=== PATIENT | male | born 1965 | race Caucasian/White ===

== ENCOUNTER → 2016-08-26 | Outpatient (CLI) | payer BC ==
[~2016-08-26] MED LIST: SIMV40TA2 PO
== END | disposition home or self-care (01) ==
LOC: C.RDSM 13:50
PROVIDERS: ATTEND Physical Medicine & Rehabilitation Sports Medicine
DX: M25.532 Pain in left wrist (principal)

== ENCOUNTER → 2016-08-28 | Outpatient (CLI) | payer BC ==
[2016-08-28 09:33] LABS: BASO % 0.2 %; BASO ABS # 0.01 K/uL (0-0.2); COMPLETE YES; EOS % 3.2 %; HEMATOCRIT 45.9 % (42-52); IG% 0.2 %; LYMPH % 40.8 %; MEAN CELL VOLUME 88.3 fL (80-100); MEAN CORPUSCULAR HEMOGLOBIN 29.8 pg (25-34); MEAN CORPUSCULAR HGB CONC 33.8 g/dl (32-36); MONO % 9.9 %; NEUT % 45.7 %; PLATELET COUNT 141 K/uL (130-400); WHITE BLOOD COUNT 4.66 K/uL (4.8-10.8)
[2016-08-28 09:49] LABS: CHOLESTEROL/HDL RATIO 3.6
--- NOTE | 2016-09-04 14:02 | CODING QUERY MEDICAL NECESSITY ---
CQSUPPORTING DIAGNOSIS NEEDED A supporting diagnosis is required for the test/procedure performed on this patient in order for us to be reimbursed by the patient's insurance. Please provide a supporting diagnosis for the following test/procedure listed below next to the test name along with your signature. *If there is no additional diagnosis for this patient that would support the following test/procedure please document that below next to the test/procedure. Test(s)/Procedure(s) that require a supporting diagnosis: DOS 08/28/16 VITAMIN D TEST Provider Signature: Date: Thank you Melissa Braxton Health Information Management Once completed, please kindly fax back to [phone] For questions please call [phone]
== END | disposition home or self-care (01) ==
LOC: C.LAB1850 07:15
PROVIDERS: ATTEND Internal Medicine
DX: Z00.00 Encounter for general adult medical examination without abnormal findings (principal); E78.5 Hyperlipidemia, unspecified; I49.3 Ventricular premature depolarization; R73.01 Impaired fasting glucose; M19.90 Unspecified osteoarthritis, unspecified site

== ENCOUNTER → 2017-04-23 | Outpatient (CLI) | payer OTHER ==
[~2017-04-23] MED LIST changes: +GADAVIST IV PRN
--- NOTE | 2017-04-23 11:22 | DIAGNOSTIC IMAGING REPORT ---
FLUOROSCOPICALLY GUIDED LEFT WRIST GADOLINIUM ARTHROGRAM PRE-MRI CLINICAL HISTORY: Left wrist pain COMPARISON STUDY: Conventional radiographic study dated 08/24/2016 FLUOROSCOPY TIME: 20 seconds. NUMBER OF FLUOROSCOPIC IMAGES: 1 FINDINGS: A timeout was performed. The risks of the procedure were explained the patient informed consent was obtained. The patient was prepped and draped in sterile fashion. The skin over the dorsum of the wrist was anesthetized 1% lidocaine. A 22-gauge needle was introduced into the radius scaphoid joint. Under fluoroscopic guidance a mixture of Optiray 300 and gadolinium was instilled. A single fluoroscopic spot image documents intra-articular location of the contrast. There were no complications. The patient was sent to the MRI suite for further evaluation. IMPRESSION: Successful fluoroscopically guided left wrist arthrogram pre-MRI Electronically signed by: Tod Rao M.D. 04/23/2017 11:20 AM Dictated Date/Time: 04/23/2017 11:18 AM
--- NOTE | 2017-04-23 11:33 | DIAGNOSTIC IMAGING REPORT ---
MRI OF THE LEFT WRIST POST ARTHROGRAM CLINICAL HISTORY: Persistent left wrist pain COMPARISON STUDY: Conventional radiographic study dated August 26, 2016 FINDINGS: Imaging was performed in the sagittal, coronal, and axial planes. There are no areas of marrow edema to indicate occult fracture or bone bruise. There is an extensive complex tear of the triangle fibrocartilage with disruption of the ulnar styloid attachment. There are no findings to indicate a tendinopathy. There is a suspected 3 mm dorsal loose body. IMPRESSION: 1. No evidence of occult fracture or bone bruise 2. Extensive complex tear of the triangular fibrocartilage 3. Probable 3 mm dorsal loose body Electronically signed by: Tod Rao M.D. 04/23/2017 11:32 AM Dictated Date/Time: 04/23/2017 11:27 AM
== END | disposition home or self-care (01) ==
LOC: C.MRIBC 09:55
PROVIDERS: ATTEND Physical Medicine & Rehabilitation Sports Medicine
DX: S63.592A Other specified sprain of left wrist, initial encounter (principal); X58.XXXA Exposure to other specified factors, initial encounter

== ENCOUNTER 2024-08-26 05:18 | Inpatient (IN) ==
--- NOTE | 2024-07-20 12:32 | PAT Medication Instructions ---
Medication Instructions Date of Service July 20, 2024 Home Medications Medication Instructions Recorded simvastatin 40 mg tablet 40 mg PO PM #90 tabs 09/29/23 tretinoin 0.05 % topical cream 1 applic topical Q OTHER DAY #45 06/01/24 grams triamcinolone acetonide 0.1 % 1 applic topical BID PRN rash #15 06/01/24 topical cream grams multivitamin 1 tab PO 2XWK PRN Other simvastatin 40 mg tablet 40 mg PO PM tretinoin 0.05 % topical cream 1 applic topical Q OTHER DAY triamcinolone acetonide 0.1 % topical cream 1 applic topical BID PRN rash STOP taking 24 hours before surgery tretinoin 0.05 % topical cream 1 applic topical Q OTHER DAY triamcinolone acetonide 0.1 % topical cream 1 applic topical BID PRN rash DO NOT take the morning of surgery multivitamin 1 tab PO 2XWK PRN Other Take evening before surgery simvastatin 40 mg tablet 40 mg PO PM MORNING OF SURGERY: NOTHING TO EAT OR DRINK AFTER MIDNIGHT Other Notes If you have any questions please call us at [phone] or [phone] or [phone] or [phone]
--- NOTE | 2024-07-28 11:09 | Anesthesiology Consultation ---
Date of Service July 28, 2024 Assessment & Plan (1) Encounter for pre-operative examination: Chart Review Chart Review: Acceptable Risk for Surgery (pending surgeon ordered PCP clearance ) and Patient seen in Pre Admission Testing - Awaiting PCP clearance 08/23/24 (Dr Pierre) Pt currently scheduled as 23 hours observation. If surgeon decides to change patient to Same Day Joint, patient would be acceptable risk for MELINA, pending patient is motivated, has good support and surgeon's office completes [facility] Program preop requirements. Per PAT appt on 07/28/24, no recent illness/disease exposures, illness related symptoms, or recent illness/disease positive tests. Will leave to surgeon's discretion if preop Covid testing needed Teaching & Discussion Pre-Anesthesia Teaching/Discussion Notes: Instructed NPO after midnight before surgery,except medications with 15 cc of water. Medication instructions provided according to the PAT guidelines. History Surgery Operation Date: 08/26/24 08:50 Proposed Procedures p Left Total Hip Arthroplasty - Huber Stokes MD Height/Weight Height: 5 ft 11.5 in Weight: 96.8 kg Allergies Allergy/AdvReac Type Severity Reaction Status Date / Time aluminum Allergy Intermediate "Metals" - Verified 07/21/24 10:24 skin irritation Additional Notes: Surgeon's office made aware- surgeon aware of "metals" allergy Medications Home Medications Medication Instructions Recorded Confirmed Last Taken multivitamin 1 tab PO 2XWK PRN Other 09/15/23 07/20/24 Unknown simvastatin 40 mg tablet 40 mg PO PM #90 tabs 09/29/23 07/20/24 Unknown tretinoin 0.05 % topical cream 1 applic topical Q OTHER DAY #45 06/01/24 07/20/24 Unknown grams triamcinolone acetonide 0.1 % 1 applic topical BID PRN rash #15 06/01/24 07/20/24 Unknown topical cream grams Past Medical History Medical History Bradycardia HR 40s-50s no dizziness, lightheadedness, syncope History of COVID-19 09/2021 (home test): Asymptomatic - /daughter positive Hyperlipidemia Suspected sleep apnea No formal testing thinks he may have this per patient Exercise / Class Metabolic Activity II 4-5 Yardwork/Stairs/Walk up hill (one flight of stairs- no chest pain or SOB ) Past Family History Family History Grandmother (Paternal) Family history of diabetes mellitus Grandfather (Maternal) Family hx of colon cancer Other No family history of adverse response to anesthesia Past Surgical History Surgical History History of Achilles tendon repair left History of arthroscopy rt knee History of arthroscopy of shoulder not sure which shoulder History of colonoscopy History of elbow surgery R/L History of facial surgery repair of broken orbital bone History of repair of anterior cruciate ligament of right knee History of repair of rotator cuff bilat History of right inguinal hernia repair History of surgery right groin and left groin---1 surgery on each History of tonsillectomy History of wisdom tooth extraction Hx of arthroscopy of right knee x5 Hx of vasectomy Status post correction of deviated nasal septum Past Anesthesia History No Hx of Anesthesia Complications and No Family Hx of Anesthesia Complications History of PONV No Hx of PONV and No Hx of Motion Sickness Social History Smoking Status: Never smoker Do You Dip or Chew Tobacco: No Hx Alcohol Use: Yes Alcohol type: beer and wine alcohol intake frequency: a few times a week Hx Substance Use: No substance use type: does not use Review of Systems Patient denies chest pain, shortness of breath, dyspnea on exertion, reflux, cough, wheezing, palpitations. No hx of seizures, stroke, SC. No hx of blood clots or blood transfusions Physical Exam Vital Signs VITALS BP 134/77 P 57 TEMP 97.8 SP02 98% RESP 16 Constitutional no acute distress ENMT Mouth: no TMJ clicking Thyromental Distance: > or= 3.5 Finger Breadths (3.5) Mallampati Class: I Mouth / Teeth: 2 1. Missing 2. Missing Partial upper denture Neck neck extension not limited Respiratory normal respiratory effort; no respiratory distress Auscultation: lungs clear to auscultation bilaterally; no wheezes Cardiovascular Rate/Rhythm: regular rate and regular rhythm Heart Sounds: no murmur Vessels: no carotid bruit Musculoskeletal Spine: + pain with cervical ROM (mildly uncomfortable ) Extremities: extremities normal to inspection Psychiatric Orientation: alert Lab Results Anesthesia Preop Results Results Anesthesia Widget: 2 WBC 5.25 K/ul (4.8-10.8) 07/28/24 Hgb 15.2 g/dl (14.0-18.0) 07/28/24 Hct 43.5 % (42.0-52.0) 07/28/24 Plt 143 K/uL (130-400) 07/28/24 Na 141 mmol/L (136-145) 07/28/24 K 4.1 mmol/L (3.5-5.1) 07/28/24 Cl 106 mmol/L (98-107) 07/28/24 CO2 29 mmol/L (21-32) 07/28/24 BUN 19 mg/dl (6-23) 07/28/24 Creat 1.09 mg/dl (0.6-1.4) 07/28/24 Glucose Level 100 mg/dl (70-99(Fasting)) H 07/28/24 PT 10.9 Seconds (9.0-12.0) 07/28/24 PTT 25 Seconds (21-31) 07/28/24 INR 1.0 (0.9-1.1) 07/28/24 Urine Color Yellow 07/28/24 Urine Appearance Clear (Clear) 07/28/24 Urine pH 6.5 (4.5-7.5) 07/28/24 Urine Specific [place] 1.022 (1.000-1.030) 07/28/24 Urine Protein Negative (Negative) 07/28/24 Urine Glucose (UA) Negative (Negative) 07/28/24 Urine Ketones Trace (Negative) H 07/28/24 Urine Blood Negative (Negative) 07/28/24 Urine Nitrite Negative (Negative) 07/28/24 Urine Bilirubin Negative (Negative) 07/28/24 Urine Urobilinogen Negative (Negative) 07/28/24 Urine Leukocyte Esterase Negative (Negative) 07/28/24 Blood Type A Negative 07/28/24 Antibody Screen NEGATIVE 07/28/24 Testing Electrocardiogram Date: 07/28/24 Findings: + SB @ (52bpm) Otherwise normal EKG per cardio
[2024-08-26] MEDS: LR 15ML/HR IV SCH (06:00)
[2024-08-26] MEDS: LR 60ML/HR IV SCH (06:06)
[2024-08-26] MEDS: FAMOTIDINE 20 MG TAB PO SCH (06:09)
[2024-08-26] MEDS: CeleBREX 200 MG CAP PO SCH (06:09)
[2024-08-26] MEDS: traMADol HCL 50 MG TABLET PO SCH (06:09)
[2024-08-26] MEDS: dexAMETHasone**PF** 10 MG/ML VIAL IV SCH (06:09)
[2024-08-26] MEDS: ACETAMINOPHEN 500 MG TAB PO SCH ×2 (06:09→15:13)
[2024-08-26] MEDS: Scopolamine 1 MG TDSY TD SCH (06:11)
[2024-08-26] MEDS ORDERED: BUPIVACAINE 0.5 % 5 MG/1 ML PF 10ML VIAL ONE (06:31)
--- NOTE | 2024-08-26 06:31 | History & Physical Bridge Note ---
Date of Service August 26, 2024 History & Physical Bridge Note I have examined the patient, reviewed the History & Physical and in the interval since the performance of the History & Physical I have noted the following changes of clinical significance: no changes noted
[2024-08-26] MEDS ORDERED: LIDOCAINE 2% 2 ML VIAL/AMP(20MG/ML) INFIL ONE (06:44)
[2024-08-26] MEDS ORDERED: PROPOFOL IV EMULSION 10 MG/ML 20 ML VIAL IV ONE ×2 (06:44→08:26)
[2024-08-26] MEDS ORDERED: fentaNYL citrate PF 100 MCG/2 ML VIAL ONE (06:45)
[2024-08-26] MEDS ORDERED: MIDAZOLAM HCL 1 MG/ML 2ML VIAL ONE (06:45)
[2024-08-26] MEDS: TRANEXAMIC ACID 1,000 MG **IV Pre-op IV SCH (06:48)
[2024-08-26] MEDS: ceFAZolin 2000MG 2,000 MG/15 ML SYR IV SCH ×2 (07:00→16:00)
[2024-08-26] MEDS ORDERED: KETAMINE HCL 10MG/ML SYR ONE (07:15)
[2024-08-26] MEDS ORDERED: PROMETHAZINE HCL 6.25 MG in SODIUM CHLORIDE 0.9% 50 ML IV PRN (07:34)
[2024-08-26] MEDS ORDERED: ATROPINE SULFATE 0.1 MG/ML 10ML SYR IV PRN (07:34)
[2024-08-26] MEDS ORDERED: HYDROmorphone INJ 2 MG/ML SYR/VIAL IV PRN (07:34)
[2024-08-26] MEDS ORDERED: ePHEDrine sulfate 50 MG/ML AMP IV PRN (07:34)
[2024-08-26] MEDS: ROPIV 0.5% 246mg, Ketorolac 30mg, EPINEPHrine 0.5mg in NSS INFIL SCH (07:34)
[2024-08-26] MEDS ORDERED: DROPERIDOL 5 MG/2 ML VIAL IV PRN (07:34)
[2024-08-26] MEDS: ORTHO JOINT ANESTHETIC ONE (07:35)
[2024-08-26] MEDS: TRANEXAMIC ACID 1,000 MG **IV Intra-op IV SCH (08:15)
[2024-08-26] MEDS ORDERED: ePHEDrine sulfate 50 MG/5 ML SYR ONE (08:27)
--- NOTE | 2024-08-26 08:44 | Operative Report ---
Post Operative Report Pre & Post Diagnosis Operation Date: 08/26/24 07:00 Pre-Op Diagnosis: Left Hip Osteoarthritis Post-Op Diagnosis: Left Hip Osteoarthritis I identified the patient and participated in the time-out.: Yes Procedure Operation Date: 08/26/24 07:00 Actual Procedures p Left Total Hip Arthroplasty(Left) - Huber Stokes MD Surgeon Huber Stokes MD [employer] Converter HANNAH Wayne PA-C. No resident or fellow was available to assist. Estimated Blood Loss 100 Findings Consistent with Post-Op Diagnosis Specimens Left femoral head Anesthesia Type Spinal MAC Complications none Disposition Disposition: Recovery Room Indications 58-year-old male, with left hip osteoarthritis refractory to conservative management. X-rays demonstrate joint space narrowing and marginal osteophyte formation. I had a long discussion with him about his diagnosis and treatment options. I reviewed the risks and benefits of surgery, alternatives to surgery, and expected outcomes. After reviewing all of his options he elected to proceed with surgery. All questions were answered. Informed consent was signed. Description of Procedure Patient was identified in the preoperative holding area where the surgical site, left hip, was marked. A spinal anesthetic was placed, then the patient was brought back to the main operating room, placed in the operating table and moved into the lateral decubitus position. Axillary roll was placed. All bony prominences were padded. Perioperative antibiotics and tranexamic acid 1 gram IV were administered. The operative extremity was prepped and draped in the normal sterile fashion. Prior to incision a multidisciplinary timeout was called. All in the room were in agreement. We began by making an incision for a posterior approach to the hip. We dissected down through subcutaneous tissues to the level of the fascia. The fascia was incised in line with the incision. Charnley bow was placed. Fatty tissue was reflected posteriorly off the back of the greater trochanter to expose the piriformis and short external rotators of the hip. Quadratus femoris was taken off the femur subperiosteally. The piriformis and short external rotators were dissected off the posterior aspect of the hip. A box cut was made in the capsule. Inferior hip capsule was released off the femur. The femoral head was dislocated. The femoral neck cut was made at our preoperative template. The acetabulum was then exposed. The labrum was sharply excised. Contents of the cotyloid fossa were removed with electrocautery. We then began reaming at a size 8 mm less than our preoperative template. We reamed up by [address] the way up to a size 56 mm cup. This gave us good bleeding cancellus bone circumferentially. The acetabulum was then irrigated out and dried. The real [place] Gription cup was then impacted down into position with 45 degrees of lateral opening and 25 degrees of anteversion. A single cancellous bone screw was placed up into the ilium. Excellent fixation was obtained. A trial liner for a 36 mm femoral head was then placed. Next we turned our attention to the femur. The lateral neck was removed with a box osteotome. Intramedullary guide was used to establish the intramedullary canal. We then broached all the way up to a size 4. We began trialing with a high offset neck and a +8.5 head. Hip was reduced. Shuck test showed him to be a little loose. Therefore I switched out his liner for a +4 liner. Shuck test was repeated and now was appropriate. Leg lengths were symmetric. The hip was stable in extension and external rotation, and stable in the sleeper position. At 90 degrees of hip flexion the hip could be internally rotated 70 degrees before levering out of the cup. I was very happy with the stability exam. Therefore the hip was dislocated and the femoral trial was removed. The acetabulum was re-exposed, and the trial liner was removed. Almond hole eliminator screw was placed. A +4 Altrx polyethylene liner for a 36 mm femoral head was then impacted into the shell. The locking mechanism was checked to ensure that it had engaged which it had. The femur was re-exposed. The femoral canal was irrigated and dried. The real Actis femoral stem was opened up. This was impacted down into position. The femoral head was opened up and gently impacted down onto the trunnion. The hip was atraumatically reduced. Another 1 gram of IV tranexamic acid was started prior to closure. The wound was irrigated out with sterile Betadine solution. The periarticular injection cocktail was then placed. The short external rotators, piriformis, and posterior capsule were repaired through drill holes in the greater trochanter using #2 Vicryl. The fascia was run with a looped #1 PDS. The subcutaneous layer was closed with #1 PDS. The dermal layer was closed with 2-0 Vicryl. Zip line was used for the skin followed by a Silverlon dressing. A compressive dressing was then placed. The patient was then rolled supine. Leg lengths were rechecked and were symmetric. An abduction pillow was placed. Sedation was lifted and the patient was transferred to the recovery room in stable condition. Summary of implants: Depuy [place] Gription Acetabular Shell Sector Cup, 56 mm outer diameter [place] Cancellous bone screw, 6.5 x 35 mm Almond hole eliminator [place] Altrx Polyethylene Acetabular Liner, +4, with a 36 mm inner diameter DePuy Actis collared cementless Femoral stem, 12/14 taper, size 4 high offset 36 mm ceramic femoral head with +8.5 offset Postoperative course: Patient will be admitted overnight from the recovery room. Patient will be weightbearing as tolerated with posterior hip precautions. Aspirin for DVT prophylaxis I attest to the content of the Intraoperative Record and any orders documented therein. Any exceptions are noted below.
--- NOTE | 2024-08-26 08:52 | Operative Report ---
Post Operative Report Pre & Post Diagnosis Operation Date: 08/26/24 07:00 Pre-Op Diagnosis: Left Hip Osteoarthritis Post-Op Diagnosis: Left Hip Osteoarthritis I identified the patient and participated in the time-out.: Yes Procedure Operation Date: 08/26/24 07:00 Actual Procedures p Left Total Hip Arthroplasty(Left) - Huber Stokes MD Surgeon Huber Stokes MD [employer] Consultant HANNAH Wayne PA-C. No resident or fellow was available to assist. Estimated Blood Loss 100 Findings Consistent with Post-Op Diagnosis Specimens femoral head Description of Procedure I was present during the entire case assisting with positioning, prepping, draping, wound retraction, wound closure, dressing and abduction pillow placement. No fellow present. Please see Dr. Stokes procedure note for specifics of the case. I attest to the content of the Intraoperative Record and any orders documented therein. Any exceptions are noted below.
[2024-08-26] MEDS ORDERED: ONDANSETRON INJ 2 MG/ML 2 ML VIAL IV PRN (08:55)
[2024-08-26] MEDS ORDERED: NALOXONE HCL 0.4 MG/1 ML VIAL/CARP IV PRN (08:55)
[2024-08-26] MEDS ORDERED: MAGNESIUM HYDROXIDE SUSP 30 ML UDC PO PRN (08:55)
[2024-08-26] MEDS ORDERED: TAMSULOSIN HCL 0.4 MG CAP PO PRN (08:55)
[2024-08-26] MEDS ORDERED: METOCLOPRAMIDE HCL INJ 5 MG/ML 2 ML VIAL IV PRN (08:55)
[2024-08-26] MEDS ORDERED: ALUMINUM/MAGNESIUM SUSP 30 ML UDC PO PRN (08:55)
[2024-08-26] MEDS ORDERED: bisacodyL 10 MG SUPP PR PRN (08:55)
--- NOTE | 2024-08-26 09:23 | XRay Report ---
XR pelvis 1-2V routine CLINICAL HISTORY: In PACU - Post Surgical COMPARISON: 08/13/2024 FINDINGS: Interval left hip prosthesis shows no hardware complication. There is expected soft tissue gas. IMPRESSION: Unremarkable postoperative exam. ACT 112: Negative or not required by law. Electronically signed by: Wilver Weinstein M.D. 08/26/2024 9:22 AM
[2024-08-26] MEDS: ASPIRIN 81 MG ECTAB PO SCH (10:23)
[2024-08-26] MEDS: DOCUSATE SODIUM 100 MG CAP PO SCH (10:23)
[2024-08-26] MEDS: KETOROLAC TROMETHAMINE 15 MG/ML VIAL IV SCH (10:23)
[2024-08-26] MEDS: MULTIVITAMIN TAB PO SCH ×2 (10:24→15:13)
[2024-08-26] MEDS: SODIUM CHLORIDE 0.9% 1,000 ML IV SCH (10:25)
--- NOTE | 2024-08-26 15:11 | Anesthesiology Progress Note ---
Date of Service August 26, 2024 Anesthesia Post Procedure Vital Signs Vital Signs: Temp Pulse Pulse Resp BP Pulse Ox O2 Del Method 08/26/24 14:58 36.4 C L 51 L 18 124/71 94 Room Air 08/26/24 12:36 36.4 C L 51 L 18 135/83 96 Room Air 08/26/24 11:40 36.5 C 68 18 120/70 95 Room Air 08/26/24 10:40 36.5 C 48 L 18 124/70 94 Room Air 08/26/24 10:10 36.4 C L 51 L 16 132/71 94 Room Air 08/26/24 10:00 51 L 13 110/63 94 Room Air 08/26/24 09:50 58 L 19 106/57 L 95 Room Air 08/26/24 09:40 36.4 C L 48 L 13 109/62 95 Room Air 08/26/24 09:30 46 L 18 98/56 L 98 Nasal Cannula 08/26/24 09:20 50 L 12 109/60 98 Nasal Cannula 08/26/24 09:10 48 L 13 102/55 L 97 Nasal Cannula 08/26/24 09:00 51 L 13 92/57 L 97 Nasal Cannula 08/26/24 08:50 36.5 C 54 L 15 97/50 L 93 Room Air 08/26/24 05:40 36.6 C 54 L 20 147/88 H 95 Room Air O2 Flow Rate 08/26/24 14:58 08/26/24 12:36 08/26/24 11:40 08/26/24 10:40 08/26/24 10:10 08/26/24 10:00 08/26/24 09:50 08/26/24 09:40 08/26/24 09:30 1 08/26/24 09:20 1 08/26/24 09:10 3 08/26/24 09:00 3 08/26/24 08:50 08/26/24 05:40 Pain Intensity Left Hip: Pain Intensity: 0 Transfer of Care Handoff Completed per policy Notes Mental Status: alert / awake / arousable and participated in evaluation Nausea / Vomiting: adequately controlled Pain: adequately controlled Airway Patency, RR, SpO2: stable & adequate BP & HR: stable & adequate Hydration State: stable & adequate Anesthetic Complications: no major complications apparent and Pt Satisfied with anesthetic care
[2024-08-26] MEDS: Scopolamine CHECK PATCH PLACEMENT SCH (16:00)
[2024-08-26] MEDS: SENNA 8.6 MG TAB PO SCH (20:27)
[2024-08-26] MEDS: SIMVASTATIN 40 MG TAB PO SCH (20:28)
[2024-08-27] MEDS: diphenhydrAMINE 50 MG/ML VIAL IV PRN (04:03)
[2024-08-27 06:42] LABS: Basophils # (auto) 0.01 K/uL (0.00-0.20); Basophils % (auto) 0.1 %; Eosinophils # (auto) 0.02 K/uL (0.00-0.50); Eosinophils % (auto) 0.2 %; Hematocrit (blood only) 36.6 % (42.0-52.0); Immature Granulocytes # (auto) 0.05 K/uL (0.01-0.20); Immature Granulocytes % (auto) 0.5 %; Lymphocytes # (auto) 1.66 K/uL (1.20-3.40); Lymphocytes % (auto) 14.9 %; Mean Corpuscular Hemoglobin 30.4 pg (25.0-34.0); Mean Corpuscular Hgb Conc 35.5 g/dL (32.0-36.0); Mean Corpuscular Volume 85.7 fL (80.0-100.0); Monocytes # (auto) 1.29 K/uL (0.11-0.59); Monocytes % (auto) 11.6 %; Neutrophils # (auto) 8.08 K/uL (1.40-6.50); Neutrophils % (auto) 72.7 %; Platelet Count 129 K/uL (130-400); RDW Coefficient of Variation 12.4 % (11.5-14.5); RDW Standard Deviation 38.4 fL (36.4-46.3); Red Blood Count 4.27 M/uL (4.70-6.10); White Blood Count 11.11 K/ul (4.8-10.8)
[2024-08-27 07:08] LABS: Creatinine Clr Calc Pharmacy 97.7 ml/min
[2024-08-27] MEDS: dexAMETHasone 10 MG in SYRINGE 0 ML IV SCH (08:00)
[2024-08-27] MEDS: CeleBREX 200 MG CAP PO SCH (08:07)
--- NOTE | 2024-08-27 09:39 | Orthopedic Progress Note ---
Date of Service August 27, 2024 Assessment & Plan (1) S/P total left hip arthroplasty: Plan: Total hip precautions reviewed Weightbearing as tolerated with walker assistance PT/OT DVT prophylaxis with aspirin and SCOUT stockings Keep Silverlon dressing in place Ice to the throughout Abduction pillow use x 6 weeks Pain control with p.o. medication Plan is to discharge home later today with in-home physical therapy for the first 2 weeks Follow-up at [facility] orthopedics as previously scheduled With questions contact our clinic at [phone] Admission and Anticipated Discharge Date Admission Date: August 26, 2024 Subjective This 58-year-old male is day 1 status post left total hip arthroplasty. Patient states he is doing fairly well. He states that his pain is effectively controlled with p.o. pain medication he is receiving. States that he has completed PT and OT this morning. He is hoping to be discharged home later this morning. Currently he denies chest pain, shortness of breath, fever, chills, sweats, nausea, vomiting, diarrhea or difficulty voiding. He has no complaint of numbness or tingling in his left lower extremity. Review of Systems Review of Systems: All systems reviewed & are unremarkable except as noted in Subjective Physical Exam Physical Exam: Left hip: Outer dressing was removed. Silverlon is clean dry and intact left in place. Patient is able to perform an active straight leg raise test. He is able to actively dorsi and plantarflex his foot. His quad strength is 4 out of 5. Patient tolerates passive hip flexion to 80 degrees and only feels a slight pulling sensation with light passive internal rotation. He has no discomfort with external rotation. Logroll test negative. He is neurovascularly intact in the left lower extremity and able to easily transition from a seated to standing position with the assistance of his walker. Results & Data Vital Signs (Past 12 Hours) Vital Signs Temp Pulse Pulse Resp BP Pulse Ox O2 Del Method 08/27/24 08:08 36.8 C 56 L 18 132/65 96 Room Air 08/27/24 03:00 37.0 C 54 L 16 113/65 94 Room Air 08/26/24 23:00 36.8 C 54 L 16 116/65 95 Room Air Diagnostic Findings Laboratory Results WBC 11.11 K/ul (4.8-10.8) H 08/27/24 06:17 RBC 4.27 M/uL (4.70-6.10) L 08/27/24 06:17 Hgb 13.0 g/dl (14.0-18.0) L 08/27/24 06:17 Hct 36.6 % (42.0-52.0) L 08/27/24 06:17 MCV 85.7 fL (80.0-100.0) 08/27/24 06:17 MCH 30.4 pg (25.0-34.0) 08/27/24 06:17 MCHC 35.5 g/dL (32.0-36.0) 08/27/24 06:17 RDW Std Deviation 38.4 fL (36.4-46.3) 08/27/24 06:17 RDW Coeff of Kelsey 12.4 % (11.5-14.5) 08/27/24 06:17 Plt Count 129 K/uL (130-400) L 08/27/24 06:17 MPV 10.0 fL (9.4-12.4) 08/27/24 06:17 Immature Gran % (Auto) 0.5 % 08/27/24 06:17 Neut % (Auto) 72.7 % 08/27/24 06:17 Lymph % (Auto) 14.9 % 08/27/24 06:17 [place] % (Auto) 11.6 % 08/27/24 06:17 Eos % (Auto) 0.2 % 08/27/24 06:17 Baso % (Auto) 0.1 % 08/27/24 06:17 Neut # (Auto) 8.08 K/uL (1.40-6.50) H 08/27/24 06:17 Lymph # (Auto) 1.66 K/uL (1.20-3.40) 08/27/24 06:17 [place] # (Auto) 1.29 K/uL (0.11-0.59) H 08/27/24 06:17 Eos # (Auto) 0.02 K/uL (0.00-0.50) 08/27/24 06:17 Baso # (Auto) 0.01 K/uL (0.00-0.20) 08/27/24 06:17 Immature Gran # (Auto) 0.05 K/uL (0.01-0.20) 08/27/24 06:17 Sodium 140 mmol/L (136-145) 08/27/24 06:17 Potassium 4.0 mmol/L (3.5-5.1) 08/27/24 06:17 Chloride 108 mmol/L (98-107) H 08/27/24 06:17 Carbon Dioxide 25 mmol/L (21-32) 08/27/24 06:17 Anion Gap 7 (3-11) 08/27/24 06:17 BUN 17 mg/dl (6-23) 08/27/24 06:17 Creatinine 1.00 mg/dl (0.6-1.4) 08/27/24 06:17 Est Cr Clr Drug Dosing 97.7 ml/min 08/27/24 06:17 eGFR 87.78 08/27/24 06:17 BUN/Creatinine Ratio 17.0 (10-20) 08/27/24 06:17 Glucose 128 mg/dl (70-99(Fasting)) H 08/27/24 06:17 Calcium 9.0 mg/dl (8.6-10.3) 08/27/24 06:17 Impressions Pelvis X-Ray 08/26/24 08:55 XR pelvis 1-2V routine CLINICAL HISTORY: In PACU - Post Surgical COMPARISON: 08/13/2024 FINDINGS: Interval left hip prosthesis shows no hardware complication. There is expected soft tissue gas. IMPRESSION: Unremarkable postoperative exam. ACT 112: Negative or not required by law. Electronically signed by: Wilver Weinstein M.D. 08/26/2024 9:22 AM
--- NOTE | 2024-08-27 09:46 | Discharge Summary ---
Date of Service August 27, 2024 Admission HPI Per Admitting Provider History of Present Illness Omero Patel is a 58-year-old male who presents to the clinic today for history and physical examination. He is scheduled for a left total hip arthroplasty with Dr. Stokes at [facility]. Patient has had left hip pain for about the last year. He has had several injections in the past, most recently about 4 months ago. His pain has persisted and is affecting his ability to perform activities that he wants to do, and is keeping him awake at night. He recently met with Dr. Stokes in June and decision was made to proceed with surgery. Patient has a few questions today about surgery. He does plan to travel to [place] about a month after surgery. Regarding past medical history, patient is healthy. He only takes a statin for daily medication. No significant cardiac history. He denies any acute health concerns. Does report a metal allergy, has been unable to wear any sort of jewelry in the past, develops a rash. He denies any history of blood clots, MRSA infection, or bleeding or clotting disorders. No chest pain, shortness of breath, abdominal pain, nausea, vomiting, urinary symptoms, dental infections, recent dental work. Has had many other surgeries in the past but no history of joint replacements. Admission Exam Per Admitting Provider CONSTITUTIONAL: well developed, well nourished. resting comfortably in no distress EARS: tm's without erythema or bulging. canals without erythema or edema. EYES: PERRL. conjunctiva normal MOUTH: oropharynx clear. dentition in good repair. no evidence of dental infection CARDIOVASCULAR: regular rate and rhythm. no murmurs, rubs, or gallops. Palpable DP and PT pulses RESPIRATORY: no tachypnea. lungs clear to auscultation bilaterally ABDOMEN: normal bowel sounds MUSCULOSKELETAL: Focusing on the patient's LEFT lower extremity: Antalgic gait Mild Varus alignment of the knee ROM: Hip flexion 90 / Abduction limited to 15 / External rotation 30 / Internal rotation 5 + Log roll + Scour test Equivocal Impingement test + CLAUDINE test + Stinchfield test - Mateusz's test NEUROLOGIC: Sensation intact to light touch L3 to S1 dermatomes Principal Diagnosis s/p left total hip arthroplasty Discharge Exam Left hip: Outer dressing was removed. Silverlon is clean dry and intact left in place. Patient is able to perform an active straight leg raise test. He is able to actively dorsi and plantarflex his foot. His quad strength is 4 out of 5. Patient tolerates passive hip flexion to 80 degrees and only feels a slight pulling sensation with light passive internal rotation. He has no discomfort with external rotation. Logroll test negative. He is neurovascularly intact in the left lower extremity and able to easily transition from a seated to standing position with the assistance of his walker. Discharge Data Allergies Allergy/AdvReac Type Severity Reaction Status Date / Time aluminum Allergy Intermediate "Metals" - Verified 08/26/24 05:34 skin irritation Procedures Performed Operation Date: 08/26/24 07:00 Actual Procedures p Left Total Hip Arthroplasty(Left) - Huber Stokes MD Hospital Course (1) S/P total left hip arthroplasty: Patient had an uneventful overnight stay following left total hip arthroplasty. He is very pleased with the results of the surgery. He is hoping to discharge home from the hospital soon as possible. He is already scheduled for 2-week follow-up in our office. Total hip precautions reviewed Weightbearing as tolerated with walker assistance PT/OT DVT prophylaxis with aspirin and SCOUT stockings Keep Silverlon dressing in place Ice to the throughout Abduction pillow use x 6 weeks Pain control with p.o. medication Plan is to discharge home later today with in-home physical therapy for the first 2 weeks Follow-up at [facility] orth[facility] as previously scheduled With questions contact our clinic at [phone] Total Time Total Time Spent Total Time Spent (In Minutes): 20 mins Discharge Plan Discharge Items Patient Disposition: Home - Home Health Services Reason For Visit: Left Hip Osteoarthritis Discharge Diagnosis: s/p Left total hip arthroplasty Activity: As commented below Lifting: None Bathing: Keep incision dry Bathing Comment: may shower tomorrow Sexual Activity: Wait until after follow-up appointment Exercise/Sports: Wait until after follow-up appointment Driving/Machine Use: No driving until cleared by credit operations specialist Weightbearing: Left weightbearing Weightbearing Comment: as tolerated with walker assistance Non-emergency contact: Surgeon Call non-emergency contact if: you have any medication questions, your pain is not controlled, your temperature is above 101.5, your wound has increased drainage and your wound pain has increased Follow-up/Referrals: Pro,Carlos Alberto James MD [Primary Care Provider] - Diet: Regular Addtl Attending Provider Instructions: Post-operative Instructions Dear Patient and Family/Friends, Before you are discharged from the hospital, it is important to know what to expect when you get home after surgery. To that end, we have created this sheet of discharge instructions which covers many commonly asked questions. Make sure you go through this sheet in its entirety with your nurse before you are discharged. Please note that we will go over the specifics of your surgery and recovery when you return for your first post-operative visit. Sincerely, Dr. Stokes Medications 1. Oxycodone 5 mg: Take 1 to 2 tablets every 4-6 hours as needed for postoperative pain control. A prescription for this medication will be sent to your pharmacy 2. Diclofenac sodium 75 mg: Take 1 tablet twice daily for the first 2 days postoperatively for relief of pain and inflammation. This will also be sent to your pharmacy with 1 refill. 3. Aspirin 81 mg: Take 1 tablet twice daily for the first 30 days postoperatively for blood clot prevention. Please purchase the medication. 4. Extra strength Tylenol 500 mg: Take 2 tablets every 6-8 hours as needed for additional supplemental pain control. Please purchase this medication. Pain Expect to be in a fair amount of pain after surgery. Remember, our goal is not to eliminate your pain, but to make it tolerable. It is a good idea to stay ahe ad of your pain by taking the medications you were prescribed once you get home. Typically, the pain starts improving 3-7 days after surgery. You should start weaning off the narcotic pain medication (oxycodone, hydrocodone, hydromorphone, morphine) as soon as your pain improves. Please call our office if your pain is not adequately controlled. Ice Ice your operative site at least 5 times a day for 15-30 minutes at a time. Make sure you have a thin cloth between the ice or cooling unit and your skin to prevent mishra bite. This is especially important if you received a nerve block. Continue icing your operative site for the first 5-7 days after surgery, then as needed. Diet/Nausea/Vomiting Start by drinking clear liquids and eating crackers. If you can tolerate this, then you may resume your normal diet. If you feel nauseated or vomit, take Zofran/ondansetron (if prescribed). Please call our office if you have intractable nausea or vomiting, or, if after hours, you may go to the Emergency Room for help. Constipation Constipation is a common side effect of narcotic pain medication. If you have not had a bowel movement within 2 days after surgery, we recommend purchasing an over the counter laxative such as Milk of Magnesia, Dulcolax, or Miralax from a local pharmacy, and taking it as instructed. Call our clinic if any questions. Nerve block The anesthesia team sometimes places a nerve block to help with post-operative pain control. This results in significant numbness and inability to move the extremity. The nerve block usually wears off in 8-12 hours, but sometimes can last up to 24 hours. Please call our office if you are still unable to move your extremity after 24 hours, unless you received a pain pump to take home. Nerve blocks typically wear off quickly, so start taking pain medication as soon as you start feeling soreness near your surgical site. Weight bearing and Range of Motion. Do not bear any weight through your operative extremity immediately after surgery. If you had upper extremity surgery, do not lift anything with that arm. If you are in a knee brace, keep it locked in place until your follow-up. We will discuss your weight bearing, range of motion, and lifting restrictions in detail at your first post-operative appointment. Continuous Passive Motion (CPM) Machine If you were prescribed a CPM machine, it will start after your first post- operative appointment, at which time we will give you instructions on the range of motion settings and duration of treatment Physical therapy You will be given a prescription for physical therapy or occupational therapy at your first post-operative appointment. Typically, patients start therapy within 1 week of surgery Wound care and showering We will inspect your wound at your first post-operative visit, and may do a dressing change at that time. Most patients will be in a water-proof dressing that is removed 14 days after surgery. It is normal to see some dried blood on the dressing. Do not remove your dressing, paper strips or sutures yourself unless you are given permission. Showering is allowed the day after surgery. Do not scrub or remove any dressings. The wound should not be submerged underwater (i.e. in a bathtub or pool) until 4 weeks after surgery SCOUT stockings If you were given white stockings, these are to be worn at all times except to shower (on both legs) for the first 2 weeks after surgery. Driving You may not drive while taking narcotic pain medication or while in a cast, splint, sling or brace. You, the patient, need to make the final determination about when you are safe to drive, however, the earliest you may consider driving after surgery is below: Hand/Wrist/Elbow Surgery: 3 days Shoulder Surgery: 2 weeks Hip,/Knee/Ankle Surgery: 4 weeks Fracture repair: 6 weeks Return to Work Your return to work depends on what surgery was done and what type of work you do. Please bring any paperwork your employer needs completed to your first post-operative visit. Also, bring a description of your job duties, as this helps us to understand what risks you may face at work. Travel Avoid long distance travel (greater than 1 hour) in airplanes and cars for the first 6 weeks after surgery. If you must travel, you need to have a Doppler ultrasound done before you travel to rule out a blood clot in your legs. Follow-up You should have a follow-up appointment already scheduled 1-2 days after surgery. If not, please contact our office to make this appointment before you leave the hospital. When to call the office It is normal to have swelling and bruising in the limb that was operated on. This will improve with time. It is also normal to have fevers for the first 2 days after surgery. Reasons you should call your doctor include: Uncontrolled pain; Nausea, vomiting, or constipation that does not improve with medication; Fevers over 101.5, chills, sweats; Drainage or bleeding from the wound; Foul odor; Spreading areas of redness; Any other concerns. Contact Information Please call Dr. Stokes's office at [phone] with any concerns. Pending Studies at Discharge: No Stand-Alone Forms: My Your [employer] by [employer], Smoking Cessation Medications and DC Order Prescriptions: New aspirin 81 mg Tablet,Delayed Release (Dr/Ec) 81 mg PO BID 30 Days Qty: 60 0RF acetaminophen [Tylenol Extra Strength] 500 mg Tablet 1,000 mg PO Q8 30 Days Qty: 180 0RF oxycodone 5 mg Tablet 5 - 10 mg PO Q4H MDD Max 6/day PRN (Reason: Post op pain control) Qty: 28 0RF diclofenac sodium 75 mg tablet,delayed release (DR/EC) 75 mg PO BID 3 Days Qty: 6 1RF Continued simvastatin 40 mg tablet 40 mg PO PM Qty: 90 3RF triamcinolone acetonide 0.1 % cream 1 applic TOP BID PRN (Reason: rash) Qty: 15 1RF multivitamin Tablet 1 tab PO 2XWK PRN (Reason: Other) tretinoin [Retin-A] 0.05 % cream 1 applic topical Q OTHER DAY PRN (Reason: Acne) Discharge Orders: Discharge Order (Routine); Ordered 08/27/24 Ordered By: Roderick Wayne Admission Data Admit Date/Time: 08/26/24 08:05 Attending Provider: Huber Stokes Admit Provider: Huber Stokes Primary Care Provider: Carlos Alberto Pierre Other Providers: [facility],Referral Center; [facility] Other Interventions: Discharge Summary Assessment (RN) Last Done: 08/27/24 09:56
[2024-08-27] MEDS: oxyCODONE HCL IR 5 MG TAB (IMMEDIATE RELEASE) PO PRN (09:59)
== END 2024-08-27 11:57 | disposition home health service (06) | DRG 470 ==
LOC: ASU 05:18 → 3E 08:05